=== PATIENT | female | born 1955 | race American Indian/Alaskan Native ===

== ENCOUNTER 2020-04-09 12:39 | Emergency (ER) | payer SELFPAY ==
--- NOTE | 2020-04-09 13:01 | Event Note ---
ED Screening Note Date of service: 04/09/20 (nn) Time: 12:59 ED Screening Note: This is a 64-year-old female presents the ED complaining of chest tightness, shortness of breath and productive coughing intermittently for the past couple weeks. This initial assessment/diagnostic orders/clinical plan/treatment(s) is/are subject to change based on patients health status, clinical progression and re- assessment by fellow clinical providers in the ED. Further treatment and workup at subsequent clinical providers discretion. Patient/guardian urged not to elope from the ED as their condition may be serious if not clinically assessed and managed. Initial orders include: ekg, labs, cxr main side eval
--- NOTE | 2020-04-09 13:25 | XRay Report ---
CHEST 1 VIEW INDICATION: Chest Pain. COMPARISON: None FINDINGS: Support devices: None. Heart: Within normal limits. Lungs/Pleura: No acute air space or interstitial disease. Additional findings: None. IMPRESSION: No acute findings. Signer Name: Hussein Brice Jr, MD Signed: 04/09/2020 1:21 PM Workstation Name: [id number]
--- NOTE | 2020-04-09 13:42 | Emergency Department Report ---
ED Chest Pain HPI - General Chief Complaint: Chest Pain Stated Complaint: CHEST PAIN/COUGHING Time Seen by Provider: 04/09/20 13:26 Source: patient Mode of arrival: Ambulatory Limitations: No Limitations - History of Present Illness Initial Comments: Patient is 64 years old female with history of hypertension. Patient presented to the ER complaining of substernal chest pain for approximately 1 month now. Patient described her pain as aching and soreness. Patient stated that pain increases when she started coughing. Patient stated that she has been coughing greenish sputum. Patient stated pain does not radiate. She denied any shortness of breath. Patient also denied any fever or chills. Patient also denied any contact with patient with COVID-19. MD Complaint: chest pain -: month(s) Onset: during rest Pain Location: substernal Quality: aching Consistency: intermittent Other Symptoms: cough - Related Data Allergies Allergy/AdvReac Type Severity Reaction Status Date / Time No Known Allergies Allergy Unverified 04/09/20 12:43 Heart Score - HEART Score History: Slightly suspicious EKG: Non-specific Age: 45-65 Risk factors: 1-2 risk factors Troponin: < normal limit HEART Score: 3 - Critical Actions Critical Actions: 0-3 pts:0.9-1.7%risk of adverse cardiac event.Candidate for discharge ED Review of Systems ROS: Stated complaint: CHEST PAIN/COUGHING Other details as noted in HPI Comment: All other systems reviewed and negative Constitutional: denies: chills, fever Respiratory: cough. denies: shortness of breath, SOB with exertion, SOB at rest, wheezing Cardiovascular: chest pain. denies: palpitations, dyspnea on exertion Gastrointestinal: denies: abdominal pain, nausea, vomiting, diarrhea, constipation, hematemesis, melena, hematochezia Musculoskeletal: denies: back pain Neurological: denies: headache, weakness ED Past Medical Hx - Past Medical History Previous Medical History?: Yes Hx Hypertension: Yes - Surgical History Past Surgical History?: Yes Additional Surgical History: tubal ligation - Social History Smoking Status: Never Smoker Substance Use Type: None ED Physical Exam - General Limitations: No Limitations General appearance: alert, in no apparent distress - Head Head exam: Present: atraumatic, normocephalic, normal inspection - Eye Eye exam: Present: normal appearance, PERRL - ENT ENT exam: Present: normal exam, normal orophraynx, mucous membranes moist - Neck Neck exam: Present: normal inspection, full ROM. Absent: tenderness, meningismus, lymphadenopathy, thyromegaly - Respiratory Respiratory exam: Present: normal lung sounds bilaterally, chest wall tenderness - Cardiovascular Cardiovascular Exam: Present: regular rate, normal rhythm, normal heart sounds - GI/Abdominal GI/Abdominal exam: Present: soft, normal bowel sounds. Absent: distended, tenderness, guarding, rebound, rigid, organomegaly, mass, bruit, pulsatile mass, hernia - Extremities Exam Extremities exam: Present: normal inspection, full ROM, normal capillary refill. Absent: pedal edema, calf tenderness - Back Exam Back exam: Present: normal inspection, full ROM. Absent: CVA tenderness (R), CVA tenderness (L), muscle spasm, paraspinal tenderness, vertebral tenderness - Neurological Exam Neurological exam: Present: alert, oriented X3, CN II-XII intact, normal gait, reflexes normal. Absent: motor sensory deficit - Psychiatric Psychiatric exam: Present: normal mood - Skin Skin exam: Present: warm, intact, normal color ED Course Vital Signs 04/09/20 04/09/20 04/09/20 12:43 13:40 13:49 Temperature 97.9 F Pulse Rate 70 65 Respiratory 18 15 Rate Blood Pressure 152/83 159/80 Blood Pressure 159/80 [Left] O2 Sat by Pulse 100 100 100 Oximetry 04/09/20 04/09/20 04/09/20 13:50 14:00 15:00 Temperature Pulse Rate 69 61 Respiratory 17 14 16 Rate Blood Pressure 159/80 126/103 Blood Pressure [Left] O2 Sat by Pulse 100 100 Oximetry 04/09/20 04/09/20 15:39 16:00 Temperature Pulse Rate 60 Respiratory 16 Rate Blood Pressure 138/73 Blood Pressure 133/95 [Left] O2 Sat by Pulse 100 Oximetry ED Medical Decision Making - Lab Data Result diagrams: 04/09/20 13:39 04/09/20 13:39 - EKG Data -: EKG Interpreted by Ny EKG shows normal: sinus rhythm Rate: normal - EKG Data Interpretation: no acute changes - Radiology Data Radiology results: report reviewed - Medical Decision Making Patient is 64 years old female with history of hypertension. Patient presented to the ER complaining of substernal chest pain for approximately 1 month now. Patient described her pain as aching and soreness. Patient stated that pain increases when she started coughing. Patient stated that she has been coughing greenish sputum. Patient stated pain does not radiate. She denied any shortness of breath. Patient also denied any fever or chills. Patient also denied any contact with patient with COVID-19. EKG showed no ST elevation or depression. Labs reviewed and is unremarkable including 2- troponin. Patient chest pain is reproducible and it has been going on for more than a month now. Patient also reported cough and increasing of the pain when she cough. I believe patient pain is most likely musculoskeletal due to chronic cough however cardiac origin cannot be excluded and patient strongly advised to follow-up with her primary care physician for outpatient cardiac work-up. Patient given medication for cough and pain and advised to return to the ER if she develop any new symptoms or if her symptoms get worse. Critical care attestation.: If time is entered above; I have spent that time in minutes in the direct care of this critically ill patient, excluding procedure time. ED Disposition Clinical Impression: Chest pain, Costochondritis, acute Disposition: DC-01 TO HOME OR SELFCARE Is pt being admited?: No Condition: Stable Instructions: Chest Pain (ED), Costochondritis (ED) Referrals: PRIMARY CARE, [Primary Care Provider] - 3-5 Days
[2020-04-09 13:58] LABS: Basophils % (Auto) 0.9 % (0.0-1.8); Eosinophils # (Auto) 0.2 K/mm3 (0.0-0.4); Hematocrit 42.7 % (30.3-42.9); Hemoglobin 14.1 gm/dl (10.1-14.3); Lymphocytes # (Auto) 1.3 K/mm3 (1.2-5.4); Lymphocytes % (Auto) 29.1 % (13.4-35.0); Mean Corpuscular HGB Conc 33 % (30-34); Mean Corpuscular Volume 91 fl (79-97); Monocytes # (Auto) 0.4 K/mm3 (0.0-0.8); Monocytes % (Auto) 9.5 % (0.0-7.3); Platelet Count 215 K/mm3 (140-440); Red Blood Count 4.71 M/mm3 (3.65-5.03); Red Cell Distribution Width 14.6 % (13.2-15.2)
[2020-04-09 14:15] LABS: BUN/Creatinine Ratio 26; Blood Urea Nitrogen 18 mg/dL (7-17); Calcium 9.9 mg/dL (8.4-10.2); Hemolysis Index 18
[2020-04-09 14:17] LABS: INR 0.95 (0.87-1.13); Partial Thromboplastin Time 28.2 Sec. (24.2-36.6)
[2020-04-09 14:19] LABS: Alanine Aminotransferase 30 units/L (7-56); Albumin 4.3 g/dL (3.9-5)
[2020-04-09 15:03] LABS: Bilirubin,Direct < 0.2 mg/dL (0-0.2)
[2020-04-09 17:35] VITALS: BP 113/59
== END 2020-04-09 17:36 | disposition home or self-care (01) ==
LOC: ED 12:39
DX: M94.0 Chondrocostal junction syndrome [Tietze] (principal); R07.9 Chest pain, unspecified; I10 Essential (primary) hypertension; Z98.51 Tubal ligation status
CPT/HCPCS: 36415; 71045; 80048; 80076; 83880; 84484; 85025; 85610; 85730; 93005

== ENCOUNTER 2021-03-14 13:39 | Emergency (ER) | payer OTHER ==
--- NOTE | 2021-03-14 15:26 | Emergency Department Report ---
Blank Doc - Documentation Documentation: 65-year-old female that presents with bilateral leg swelling. Patient stated is not compliant with her medication. 1- This initial assessment/diagnostic orders/clinical plan/ treatment(s) is/are subject to change based on pt's health status, clinical progression and re-asses sment by fellow clinical providers in the ED. Further treatment and workup at subsequent clinical provers discretion. Patient/guardians urged not to elope from ED as their condition may be serious if not clinically assessed and managed. 2-labs with EKG
--- NOTE | 2021-03-14 15:55 | XRay Report ---
CHEST 2 VIEWS INDICATION / CLINICAL INFORMATION: Chest Pain. COMPARISON: 04/09/2020. FINDINGS: SUPPORT DEVICES: None. HEART / MEDIASTINUM: No significant abnormality. LUNGS / PLEURA: No significant pulmonary or pleural abnormality. No pneumothorax. ADDITIONAL FINDINGS: No significant additional findings. IMPRESSION: No acute cardiopulmonary abnormality. Signer Name: Ace Barron MD Signed: 03/14/2021 3:51 PM Workstation Name: [id number]
[2021-03-14 16:57] LABS: Basophils # (Auto) 0.1 K/mm3 (0.0-0.1); Basophils % (Auto) 0.9 % (0.0-1.8); Eosinophils # (Auto) 0.3 K/mm3 (0.0-0.4); Eosinophils % (Auto) 4.5 % (0.0-4.3); Hematocrit 40.1 % (30.3-42.9); Hemoglobin 13.5 gm/dl (10.1-14.3); Lymphocytes # (Auto) 1.5 K/mm3 (1.2-5.4); Lymphocytes % (Auto) 23.4 % (13.4-35.0); Mean Corpuscular HGB Conc 34 % (30-34); Mean Corpuscular Volume 91 fl (79-97); Monocytes # (Auto) 0.6 K/mm3 (0.0-0.8); Monocytes % (Auto) 9.6 % (0.0-7.3); Platelet Count 240 K/mm3 (140-440); Red Cell Distribution Width 14.3 % (13.2-15.2)
[2021-03-14 17:12] LABS: INR 1.03 (0.87-1.13)
[2021-03-14 17:13] LABS: Partial Thromboplastin Time 32.1 Sec. (24.2-36.6)
[2021-03-14 17:14] LABS: Alanine Aminotransferase 24 units/L (7-56); Albumin 4.5 g/dL (3.9-5); Blood Urea Nitrogen 15 mg/dL (7-17); Calcium 9.5 mg/dL (8.4-10.2); Hemolysis Index 5
[2021-03-14 17:16] LABS: BUN/Creatinine Ratio 21
[2021-03-14 21:07] VITALS: BP 169/79
[2021-03-14] MEDS ORDERED: hydroCHLOROthiazide 25 MG TAB PO ONE (21:18)
[2021-03-14] MEDS ORDERED: LISINOPRIL 20 MG TAB PO ONE (21:18)
[2021-03-14] MEDS ORDERED: METOPROLOL TARTRATE 50 MG TAB PO ONE (21:18)
--- NOTE | 2021-03-14 21:34 | Emergency Department Report ---
ED General Adult HPI - General Chief complaint: Extremity Injury, Lower Stated complaint: LEGS HAVE FLUID ON THEM Time Seen by Provider: 03/14/21 15:25 Source: patient Mode of arrival: Ambulatory Limitations: No Limitations - History of Present Illness MD Complaint: Bilateral LE swelling -: days(s) (3) - Related Data Previous Rx's Medication Instructions Recorded Last Taken Type Naproxen [Naprosyn] 500 mg PO BID #14 tablet 04/09/20 Unknown Rx guaiFENesin [Robitussin] 10 ml PO TID PRN #100 ml 04/09/20 Unknown Rx Allergies Allergy/AdvReac Type Severity Reaction Status Date / Time No Known Allergies Allergy Unverified 04/09/20 12:43 ED Review of Systems ROS: Stated complaint: LEGS HAVE FLUID ON THEM Other details as noted in HPI ED Past Medical Hx - Past Medical History Previous Medical History?: Yes Hx Hypertension: Yes - Surgical History Additional Surgical History: tubal ligation - Social History Smoking Status: Never Smoker Substance Use Type: None - Medications Home Medications: Home Medications Medication Instructions Recorded Confirmed Last Taken Type Naproxen [Naprosyn] 500 mg PO BID #14 tablet 04/09/20 Unknown Rx guaiFENesin [Robitussin] 10 ml PO TID PRN #100 ml 04/09/20 Unknown Rx ED Physical Exam - General Limitations: No Limitations ED Course Vital Signs 03/14/21 15:12 Temperature 98.3 F Pulse Rate 67 Respiratory 18 Rate Blood Pressure 169/79 O2 Sat by Pulse 99 Oximetry ED Medical Decision Making - Lab Data Result diagrams: 03/14/21 15:46 03/14/21 15:46 Critical care attestation.: If time is entered above; I have spent that time in minutes in the direct care of this critically ill patient, excluding procedure time. ED Disposition Condition: Stable Referrals: PRIMARY CARE, [Primary Care Provider] - 3-5 Days
--- NOTE | 2021-03-14 21:39 | Emergency Department Report ---
ED Extremity Problem HPI - General Chief complaint: Extremity Injury, Lower Stated complaint: LEGS HAVE FLUID ON THEM Time Seen by Provider: 03/14/21 15:25 Source: patient Mode of arrival: Ambulatory Limitations: No Limitations - History of Present Illness Initial comments: 65-year-old female with a past medical history of hypertension and chronic peripheral edema presented to the ER this morning around 11:00 with complaints of bilateral lower extremity swelling. Patient's states that she had increasing swelling to her a lower extremity over the past 3 days. She reports heaviness to both legs but otherwise no significant pain. Patient also reports that she has been out of her blood pressure medication for the past 2 days. She did call to get it refilled but has not picked it up yet she states that she came to the ER first to have the swelling in her legs checked out as she has never had it swell as much as it has in the past 3 days. She denies any associated chest pain or shortness of breath. She denies any GI or symptoms. She denies any history of congestive heart failure, history of PE or DVT, or kidney disease. MD Complaint: extremity swelling -: days(s) (3 ) Location: bilateral lower extremity History of Same: Yes - Related Data Previous Rx's Medication Instructions Recorded Last Taken Type Naproxen [Naprosyn] 500 mg PO BID #14 tablet 04/09/20 Unknown Rx guaiFENesin [Robitussin] 10 ml PO TID PRN #100 ml 04/09/20 Unknown Rx Allergies Allergy/AdvReac Type Severity Reaction Status Date / Time No Known Allergies Allergy Unverified 04/09/20 12:43 ED Review of Systems ROS: Stated complaint: LEGS HAVE FLUID ON THEM Other details as noted in HPI Comment: All other systems reviewed and negative Constitutional: denies: chills, fever Eyes: denies: eye pain, eye discharge, vision change ENT: denies: ear pain, throat pain, hearing loss, epistaxis, congestion Respiratory: denies: cough, shortness of breath, SOB with exertion, SOB at rest, wheezing Cardiovascular: edema. denies: chest pain, palpitations, dyspnea on exertion, syncope, paroxysmal nocturnal dyspnea Gastrointestinal: denies: abdominal pain, nausea, vomiting, diarrhea, constipation, hematemesis, hematochezia Genitourinary: denies: urgency, dysuria, frequency, hematuria, discharge, abnormal menses, dyspareunia Musculoskeletal: denies: back pain, joint swelling, arthralgia Skin: denies: rash, lesions, change in color, change in hair/nails, pruritus Neurological: denies: headache, numbness, paresthesias, confusion, abnormal gait, vertigo Psychiatric: denies: anxiety, depression, auditory hallucinations, visual hallucinations, homicidal thoughts, suicidal thoughts Hematological/Lymphatic: denies: easy bleeding, easy bruising, swollen glands ED Past Medical Hx - Past Medical History Previous Medical History?: Yes Hx Hypertension: Yes - Surgical History Additional Surgical History: tubal ligation - Social History Smoking Status: Never Smoker Substance Use Type: None - Medications Home Medications: Home Medications Medication Instructions Recorded Confirmed Last Taken Type Naproxen [Naprosyn] 500 mg PO BID #14 tablet 04/09/20 Unknown Rx guaiFENesin [Robitussin] 10 ml PO TID PRN #100 ml 04/09/20 Unknown Rx ED Physical Exam - General Limitations: No Limitations General appearance: alert, in no apparent distress - Head Head exam: Present: atraumatic, normocephalic, normal inspection - Eye Eye exam: Present: normal appearance, PERRL, EOMI Pupils: Present: normal accommodation - Respiratory Respiratory exam: Present: normal lung sounds bilaterally. Absent: respiratory distress, wheezes, rales, rhonchi - Cardiovascular Cardiovascular Exam: Present: regular rate, normal rhythm, normal heart sounds - GI/Abdominal GI/Abdominal exam: Present: soft. Absent: distended, tenderness, guarding, rebound - Extremities Exam Extremities exam: Present: full ROM, normal capillary refill, pedal edema, joint swelling, other (pt has mild soft swelling noted to both legs; no pitting; no ttp to legs or calf. She does have multiple varicose veins noted to the lower extremities. No erythema or bruising or any other skin discoloration noted. Dorsalis pedis pulse and posterior status pulse normal. Cap refills normal). Absent: calf tenderness (.) - Neurological Exam Neurological exam: Present: alert, oriented X3, CN II-XII intact, normal gait - Psychiatric Psychiatric exam: Present: normal affect, normal mood - Skin Skin exam: Present: intact ED Course Vital Signs 03/14/21 15:12 Temperature 98.3 F Pulse Rate 67 Respiratory 18 Rate Blood Pressure 169/79 O2 Sat by Pulse 99 Oximetry ED Medical Decision Making - Lab Data Result diagrams: 03/14/21 15:46 03/14/21 15:46 - Radiology Data Radiology results: report reviewed Patient: MONA VENEGAS MR#: [id number] : 1955 Acct:[id number] Age/Sex: 65 / F ADM Date: 03/14/21 Loc: ED Attending Dr: Ordering Physician: JEFF JESUS NP Date of Service: 03/14/21 Procedure(s): XR chest routine 2V Accession Number(s): [id number] cc: JEFF JESUS NP Fluoro Time In Minutes: CHEST 2 VIEWS INDICATION / CLINICAL INFORMATION: Chest Pain. COMPARISON: 04/09/2020. FINDINGS: SUPPORT DEVICES: None. HEART / MEDIASTINUM: No significant abnormality. LUNGS / PLEURA: No significant pulmonary or pleural abnormality. No pneumothorax. ADDITIONAL FINDINGS: No significant additional findings. IMPRESSION: No acute cardiopulmonary abnormality. Signer Name: Dianna Barron MD Signed: 03/14/2021 3:51 PM Workstation Name: [id number] Transcribed By: SS Dictated By: DIANNA BARRON Electronically Authenticated By: DIANNA BARRON Signed Date/Time: 03/14/21 155 DD/ 49 TD/TT: - Medical Decision Making Patient presented to the ER this morning around 11 AM with complaints of bilateral lower extremity swelling. She has chronic peripheral edema but noticed in the past 3 days it has increased more than typical. She reports heaviness to the leg secondary to the swelling but otherwise no pain and she has not had any shortness of breath or chest pain. Labs were ordered as part of screening exam. Labs reviewed and shows nothing acute. Chest x-ray shows nothing acute. Physical exam shows that patient do have large legs but she does have associated mild soft swelling to both legs with associated varicose veins to both legs but no calf tenderness or any tenderness to her lower leg, she has no associated cellulitis, or any other skin discoloration. Distal pulses are normal. Her gait is slow but normal. Her history, physical exam and diagnostic testing does not suggest acute arterial occlusion, DVT, cellulitis, or other bacterial infection, CHF, renal failure or any other acute emergent conditions requiring additional work-up or admission at this time. Patient is not toxic or ill-appearing. She is not in any acute distress. Repeat blood pressure showed some improvement at 159/75. Patient is requesting a dose of her blood pressure medication before she leaves here tonight. She does have a refill at the pharmacy but will be able to pick it up tomorrow repeat. She was given a dose of the HCTZ and the lisinopril tonight and was given the metoprolol to take in the morning but she was instructed to get her medications filled and start taking as prescribed and she was also instructed to elevate her leg as much as possible. Patient will be given referral to local primary care doctor. Patient was stable at time of discharge. Critical care attestation.: If time is entered above; I have spent that time in minutes in the direct care of this critically ill patient, excluding procedure time. ED Disposition Clinical Impression: Peripheral edema Disposition: DC-01 TO HOME OR SELFCARE Is pt being admited?: No Does the pt Need Aspirin: No Condition: Stable Instructions: Peripheral Edema Additional Instructions: I recommend that you getting your blood pressure medication tomorrow from pharmacy and start taking it as prescribed. Elevate your leg as often as possible. Return to ED if symptoms changes or worsen in any way. Referrals: NESHA MARSHALL MD [Staff Physician] - 3-5 Days PRIMARY CAREMD [Primary Care Provider] - 3-5 Days Time of Disposition: 21:25
== END 2021-03-14 23:18 | disposition home or self-care (01) ==
LOC: ED 13:39
DX: R60.0 Localized edema (principal); I10 Essential (primary) hypertension; Z98.51 Tubal ligation status; Z79.899 Other long term (current) drug therapy
CPT/HCPCS: 36415; 71046; 80053; 83880; 84484; 85025; 85610; 85730